=== PATIENT | female | born 1975 | race Hispanic/Latino ===

== ENCOUNTER 2019-02-22 05:51 | Day surgery (SDC) | payer OTHER ==
--- NOTE | 2019-02-21 11:46 | History and Physical Report ---
History of Present Illness Date of examination: 02/13/19 History of present illness: Patient has been reassessed/reevaluated. H&P has been reviewed. No interval changes. 43 YOWF Patient desires sterilization. Discussed with various methods of contraceptives including abstinence, barrier and hormonal. Discussed oral, implantable, dermal, injectable,intravaginal and intrauterine methods. Patient declined temporary contraceptives. Discuss the permanency of sterilization. High risk of regret and 0.5 to 1% risk of failure. Questions answered Patient understands and desires to proceed. Vital Signs: Patient Profile: 43 Years Old Female LMP: 01/31/2019 Height: 62 inches (157.48 cm) Weight: 114 pounds BMI: 20.85 Menstrual History: LMP (date): 01/31/2019 On BCP's at conception: no Current Method of Contraception: None Date of Last Pap Smear: 01/01/2019 Past History : 2 Term Births: 2 Premature Births: 0 Living Children: 2 Para: 2 Mult. Births: 0 Prev : 0 Prev. attempt? 0 Aborta: 0 Elect. Ab: 0 Spont. 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 of genital herpes: no Partner hx. of genital herpes: no Hx of STD: None Active Medications (reviewed today): WELLBUTRIN () Past Medical History: Anxiety Past Surgical History: Appendectomy (02/2018) Family History Summary: Reviewed history Last on 01/01/2019 and no changes required:02/21/2019 Other family member - Has Family History of Coronary Heart Disease - Entered On: 12/08/2016 Other family member - Has No Family History of Breast Cancer - Entered On: 12/08/2016 Other family member - Has No Family History of Colon Cancer - Entered On: 12/08 Other family member - Has No Family History of Ovarvian Cancer - Entered On: 12/08/2016 General Comments - FH: Family History of Hyperlipidemia 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 Risk Factors: Smoked Tobacco Use: Never smoker Smokeless Tobacco Use: Never Passive smoke exposure: no Drug use: no Caffeine use: 0 drinks per day Alcohol use: yes Type: occ Exercise: yes Times per week: 7 Seatbelt use: 100 % PAP Smear History: Date of Last PAP Smear: 01/01/2019 Review of Systems General Denies fever, chills, sweats, anorexia, fatigue, weakness, malaise, weight loss and sleep disorder. Denies vaginal discharge, incontinence, dysuria, hematuria, urinary fr equency, amenorrhea, menorrhagia, abnormal vaginal bleeding, pelvic pain, genital sores, decreased libido, painful periods, painful sex, urinary urgency, hot flashes, vaginal dryness, vaginal itching and vaginal odor. CV Denies chest pains, palpitations, syncope, dyspnea on exertion, orthopnea, PND and peripheral edema. Resp Denies cough, dyspnea at rest, excessive sputum, hemoptysis, wheezing and pleurisy. GI Denies nausea, vomiting, diarrhea, constipation, change in bowel habits, abdominal pain, melena, hematochezia, jaundice, gas/bloating, indigestion/heartburn, dysphagia and odynophagia. Breast Denies left breast lump, right breast lump, nipple discharge, bloody d ischarge from nipple, breast pain, abnormal mammogram and breast enlargement. Psych Complains of anxiety. Denies depression, irritability and mood swings. Past History Past Medical History: other (SEE HPI) Past Surgical History: appendectomy, Other (SEE HPI) Social history: full code (SEE HPI) Family history: other (SEE HPI) Medications and Allergies Allergies Allergy/AdvReac Type Severity Reaction Status Date / Time No Known Allergies Allergy Verified 02/22/19 06:47 Home Medications Medication Instructions Recorded Confirmed Last Taken Type buPROPion SR [Wellbutrin Sr] 150 mg PO Q72H 02/18/19 02/18/19 Unknown History Review of Systems Constitutional: other (SEE HPI) Exam - Physical Exam Narrative exam: HEENT: normocephalic, no lesions or deformities Skin no ulcers, xanthomas Chest: respiratory effort normal, clear to auscultation CV: regular, normal S1-S2, no murmur, no rub, no gallop Abdomen: soft, non-tender, no masses, bowel sounds normal Well healed vertical scar supraumbilical surgical scar to symphysis Musculoskeletal: grossly normal ROM in joints, no joint tenderness or muscle weakness Neuro: no gross anomalities Extremities: no clubbing, cyanosis, or edema .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 No evidence of cystocele or rectocele. Cervix: normal appearance, no lesions, no discharge Uterus: normal position, midline, mobile Adnexae: no masses or tenderness Rectovaginal: exam defered Results - Labs CBC & Chem 7: 02/22/19 06:35 Assessment and Plan - Patient Problems (1) Encounter for sterilization Current Visit: No Status: Acute Plan to address problem: Patient desires sterilization.Discuss the permanency of sterilization. High risk of regret and 0.5 to 1% risk of failure. Discussed the different risk of abdominal versus vaginal approaches. Information given Discussed options of tubal blockage and salpingectomy and it's possible benefit of preventing ovarian cancer and increased risks of bleeding during the procedure. Discuss the risks of the surgery including infection, bleeding possibly heavy enough to require a blood transfusion, possilble damage to bowel, bladder or ureter. Patient understands and desires to proceed. with salpingectomy Patient understands her risks of adjacent organ damage and inability to perform salpingectomy is increased due to her previous surgery(ies) Patient understands and desires to proceed. (2) Anxiety Current Visit: No Status: Chronic
[2019-02-22] MEDS ORDERED: LACTATED RINGERS 1,000 ML IV SCH (06:46)
[2019-02-22] MEDS ORDERED: LACTATED RINGERS 1,000 ML ONE ×2 (06:49→08:57)
[2019-02-22 06:51] LABS: Hematocrit 36.9 % (30.3-42.9); Hemoglobin 12.7 gm/dl (10.1-14.3)
[2019-02-22] MEDS ORDERED: BUPIVACAINE/PF (0.5%) 5 MG/1 ML 30 ML VIAL INFILTRATI ONE ×2 (07:16→08:22)
--- NOTE | 2019-02-22 07:22 | Anesthesia Consultation ---
Anesthesia Consult and Med Hx Date of service: 02/22/19 - Airway Anesthetic Teeth Evaluation: Good ROM Head & Neck: Adequate Mental/Hyoid Distance: Adequate Mallampati Class: Class II Intubation Access Assessment: Good - Pulmonary Exam CTA: Yes - Cardiac Exam Cardiac Exam: RRR - Pre-Operative Health Status ASA Pre-Surgery Classification: ASA1 Proposed Anesthetic Plan: General - Central Nervous System Hx Psychiatric Problems: Yes - Other Systems Hx Alcohol Use: Yes (Occas) Hx Cancer: No
--- NOTE | 2019-02-22 07:22 | Anesthesia Day of Surgery ---
Anesthesia Day of Surgery - Day of Surgery Patient Examined: Yes Patient H&P Reviewed: Yes Patient is NPO: Yes
[2019-02-22] MEDS ORDERED: PROPOFOL 200 MG/20 ML VIAL IV ONE (07:29)
[2019-02-22] MEDS ORDERED: fentaNYL 100 MCG/2 ML INJ ONE (07:29)
[2019-02-22] MEDS ORDERED: ROCURONIUM 50 MG/5 ML INJ IV ONE (07:33)
[2019-02-22] MEDS ORDERED: LIDOCAINE MPF (2%) 20 MG/1 ML VIAL 5 ML ONE (07:34)
[2019-02-22] MEDS ORDERED: ONDANSETRON 4 MG/2 ML INJ ONE (07:50)
[2019-02-22] MEDS ORDERED: dexAMETHasone 20 MG/5 ML VIAL ONE (07:50)
[2019-02-22] MEDS ORDERED: MIDAZOLAM 2 MG/2 ML INJ IV NR (08:00)
[2019-02-22] MEDS ORDERED: SODIUM CHLORIDE 0.9% IRR 1,500 ML BOTTLE IR ONE (08:23)
[2019-02-22] MEDS ORDERED: NEOSTIGMINE 10MG/10 ML INJ MDV ONE (08:37)
[2019-02-22] MEDS ORDERED: GLYCOPYRROLATE 0.4 MG/2 ML INJ ONE (08:37)
[2019-02-22] MEDS ORDERED: KETOROLAC 30 MG/1 ML INJ ONE (08:41)
--- NOTE | 2019-02-22 09:08 | Short Stay Summary ---
Short Stay Documentation Date of service: 02/22/19 - History Past Medical History: other (SEE HPI) Past Surgical History: appendectomy, Other (SEE HPI) Social history: full code (SEE HPI) - Allergies and Medications Current Medications: Allergies No Known Allergies Allergy (Verified 02/22/19 06:47) Home Medications Medication Instructions Recorded Confirmed Last Taken Type buPROPion SR [Wellbutrin Sr] 150 mg PO Q72H 02/18/19 02/22/19 02/18/19 11:00 History RX: oxyCODONE /ACETAMINOPHEN 1 - 2 tab PO Q4H PRN #30 tablet 02/22/19 Unknown Rx [Percocet 5/325 mg] Active Medications Lactated Ringer's (Lactated Ringers) 1,000 mls @ 125 mls/hr IV DIRECT MIKIE Last Admin: 02/22/19 06:40 Dose: 125 mls/hr Documented by: Midazolam HCl (Versed) 2 mg IV PREOP NR Stop: 02/22/19 23:59 - Physical exam General appearance: no acute distress HEENT: Atraumatic Lungs: Normal air movement Gastrointestinal: normal Female Genitourinary: normal Rectal Exam: deferred Extremities: no ischemia - Brief post op/procedure progress note Date of procedure: 02/22/19 (see dictated operative note) - Hospital course Hospital course: Patient was admitted underwent the above him procedure without any complications. Patient will be discharged with follow-up in office in 1-2 weeks for postop check. - Disposition Condition at discharge: Good Disposition: DC-01 TO HOME OR SELFCARE - Discharge Diagnoses (1) Encounter for sterilization Status: Acute (2) Anxiety Status: Chronic Short Stay Discharge Plan Activity: advance as tolerated Diet: regular Wound: open to air Follow up with: JORGE WAGNER FNP-C [Primary Care Provider] - 7 Days Prescriptions: RX: oxyCODONE /ACETAMINOPHEN [Percocet 5/325 mg] 1 - 2 tab PO Q4H PRN #30 tablet PRN Reason: Pain, Moderate
--- NOTE | 2019-02-22 09:12 | Operative Report ---
Operative Report Operative Report: Date of procedure: 02/22/2019 Pre-operative diagnosis: Desires sterilization Post-operative diagnosis: Same Procedure name(s): Operative laparoscopy with bilateral salpingectomy Surgeon: Pierre Curry MD District Representative: None Anesthesia: General EBL: Minimal Complications: None Findings: Patient with some scarring of omentum noted through previous surgery other last patient with normal uterus tubes and ovaries bilaterally Specimen(s): Distal portion of the left and right fallopian tube Procedure: Patient was brought in the operating room. General anesthesia was induced without difficulty. She was placed in dorsal lithotomy position. Prepped and draped in usual sterile manner. A red rubber catheter was placed to drain her urinary bladder. Speculum placed in the vagina and a Sargis uterine manipulator was placed without difficulty. Attention was then switched to the patient's abdomen. An infra-umbilical incision was made with a scalpel. This incision was spread with a hemostat. The fascia was identified easily and grasped. A Rhoades trocar was placed without any difficulty through the incision. Intra- abdominal presence was verified directly with the laparoscope. The patient was then insufflated to approximately 3 L of CO2 gas. The patient's findings as noted above. An accessory puncture was made suprapubically. An 8 mm trocar was placed through this incision under direct visualization with no evidence of internal organ damage. An accessory puncture was made in the left lower quadrant. A 5 mm trocar was placed in this incision under direct visualization with no evidence of internal organ damage. Both fallopian tubes were identified by their fimbriated end. Starting the patient's right fallopian tube will portion approximately 1-2 cm from the cornu was grasped with the bipolar cutting instrument and transected. Progressively the mesosalpinx were cauterized and cut with the tripolar instrument until the fallopian tube was detached. The tube was then removed through the 8 mm trocar. The same procedure was taken out of the patient's left fallopian tube. Both operative sites were hemostatic. All instrument were removed. The sub-umbilicus incision was closed in layers with 0 Vicryl for the fascia and 4-0 Vicryl subcutaneously. The smaller incisions were closed with 4-0 Vicryl subcutaneously. The patient tolerated procedure well and was awakened in the operating room.the patient was accompanied to the recovery room in good condition.
[2019-02-22 09:37] VITALS: BP 109/66
[2019-02-22] MEDS ORDERED: oxyCODONE /ACETAMINOPHEN 5-325MG TAB PO PRN (10:00)
--- NOTE | 2019-02-22 12:24 | Post Anesthesia Evaluation ---
- Post Anesthesia Evaluation Patient Participated: Yes Airway Patent: Yes Stable Respiratory Function: Yes Nausea/Vomiting: No Temp > 96.8F: Yes Pain Manageable: Yes Adequeate Hydration: Yes Anesthesia Complications: No Block Receding Appropriately: Not Applicable Patient on Ventilator: No
== END 2019-02-22 05:52 | disposition home or self-care (01) ==
LOC: OR 05:51
PROVIDERS: ATTEND Obstetrics & Gynecology
DX: Z30.2 Encounter for sterilization (principal); F41.9 Anxiety disorder, unspecified; F32.9 Major depressive disorder, single episode, unspecified; Z79.899 Other long term (current) drug therapy; Z90.49 Acquired absence of other specified parts of digestive tract; Z72.89 Other problems related to lifestyle; Z98.890 Other specified postprocedural states
CPT/HCPCS: 36415; 58661; 81025; 85014; 85018; 88302; J1100; J1885; J2405; J2704; J2710; J3010; J7120